=== PATIENT | male | born 1970 | race American Indian/Alaskan Native ===

== ENCOUNTER → 2016-10-27 | Outpatient (CLI) | payer OTHER ==
[~2016-10-27] MED LIST: BUPR100T11 PO; VALA500T4 PO
== END | disposition home or self-care (01) ==
LOC: RAD 10:10
PROVIDERS: ATTEND Physician Assistant
DX: I82.5Z2 Chronic embolism and thrombosis of unspecified deep veins of left distal lower extremity (principal); M79.662 Pain in left lower leg

== ENCOUNTER → 2016-11-12 | Outpatient (CLI) | payer OTHER ==
[2016-11-14 11:06] LABS: DILUTE PROTHROMBIN TIME (DPT) 37.1 sec (0.0-55.0); DILUTE RUSSELL'S VIPER VENOM 38.6 sec (0.0-47.0); LUPUS REFLEX INTERPRETATION Comment: (.); PTT-LA 32.4 sec (0.0-43.6)
== END | disposition home or self-care (01) ==
LOC: LAB 11:20
PROVIDERS: ATTEND Family Medicine
DX: I82.512 Chronic embolism and thrombosis of left femoral vein (principal); D23.9 Other benign neoplasm of skin, unspecified; R53.83 Other fatigue
CPT/HCPCS: 36415; 81241; 85300; 85303; 85306; 85613; 85670; 85705; 85732

== ENCOUNTER 2016-12-26 10:16 | Emergency (ER) | payer OTHER ==
[~2016-12-26] VITALS: Ht 188 cm; Wt 100.0 kg
[2016-12-26] MEDS: ONDANSETRON 2MG/ML, 2ML IVPush ONE ×2 (10:30→11:48)
[2016-12-26] MEDS ORDERED: SODIUM CHLORIDE 0.9% 1,000ML IVBOLUS ONE (10:30)
[2016-12-26] MEDS ORDERED: SODIUM CHLORIDE FLUSH 10ML SYR IVF ONE (10:30)
[2016-12-26] MEDS ORDERED: MORPHINE SULFATE 4 MG/ML, 1ML IVPush PRN (10:30)
[2016-12-26] MEDS ORDERED: [UNRECOGNIZED DRUG - OTHER] PO (11:35)
[2016-12-26] MEDS ORDERED: MAGN400T36 PO (11:35)
[2016-12-26] MEDS ORDERED: VITA1TAB65 PO (11:35)
[2016-12-26] MEDS ORDERED: GINK120C PO (11:35)
[2016-12-26] MEDS ORDERED: NAPR220C2 PO (11:35)
[2016-12-26] MEDS ORDERED: ASPI-515 PO (11:35)
[2016-12-26] MEDS ORDERED: LORA10TA75 PO (11:35)
[2016-12-26] MEDS ORDERED: ONDANSETRON 2MG/ML, 2ML ONE (11:46)
[2016-12-26 11:52] LABS: BLOOD UREA NITROGEN 21 mg/dL (7-18)
[2016-12-26] MEDS ORDERED: RIVAROXABAN 15 MG TABLET PO ONE (12:54)
[2016-12-26 12:56] VITALS: BP 130/83
[2016-12-26] MEDS ORDERED: MORPHINE SULFATE 4 MG/ML, 1ML ONE (13:36)
[2016-12-26] MEDS ORDERED: OMNIPAQUE 350 MG/ML, 100ML BOTTLE ONE (18:17)
[2016-12-29 09:06] LABS: DILUTE PROTHROMBIN TIME (DPT) 33.8 sec (0.0-55.0); LUPUS REFLEX INTERPRETATION Comment: (.); PTT-LA 33.1 sec (0.0-51.9)
== END 2016-12-26 14:16 | disposition home or self-care (01) ==
LOC: ED 11:55
DX: I82.432 Acute embolism and thrombosis of left popliteal vein (principal); I82.412 Acute embolism and thrombosis of left femoral vein
CPT/HCPCS: 36415; 71275; 80048; 81240; 81241; 82040; 85025; 85300; 85303; 85306; 85613; 85670; 85705; 85732; 86147; 93005; 93971; 96361; 96374; 96375; 99285; J2405; J7030; Q9967

== ENCOUNTER → 2017-02-25 | Outpatient (CLI) | payer OTHER ==
[~2017-02-25] MED LIST changes: +ASPI-515 PO; +GINK120C PO; +LORA10TA75 PO; +MAGN400T36 PO; +NAPR220C2 PO; +VITA1TAB65 PO; +[UNRECOGNIZED DRUG - OTHER] PO
[2017-02-25 08:22] LABS: HEMATOCRIT 45.5 % (39.2-51.8); WHITE BLOOD COUNT 7.8 x10^3/uL (3.4-10)
[2017-02-25 08:34] LABS: ASPARTATE AMINO TRANSFERASE 17 U/L (15-37); BLOOD UREA NITROGEN 13 mg/dL (7-18)
== END | disposition home or self-care (01) ==
LOC: LAB 08:10
PROVIDERS: ATTEND Family Medicine
DX: Z12.5 Encounter for screening for malignant neoplasm of prostate (principal); E55.9 Vitamin D deficiency, unspecified; E74.39 Other disorders of intestinal carbohydrate absorption; E78.5 Hyperlipidemia, unspecified; R53.83 Other fatigue; Z79.899 Other long term (current) drug therapy
CPT/HCPCS: 36415; 80053; 80061; 82306; 84153; 85025; G0103

== ENCOUNTER → 2017-03-08 | Outpatient (CLI) | payer OTHER ==
[2017-03-08 12:15] LABS: BLOOD UREA NITROGEN 19 mg/dL (7-18)
[2017-03-08 12:18] LABS: ASPARTATE AMINO TRANSFERASE 17 U/L (15-37); LACTATE DEHYDROGENASE 153 U/L (87-241)
[2017-03-10 13:07] LABS: BETA-2 GLYCOPROTEIN I IGA <9 (0-25)
[2017-03-10 15:03] LABS: JAK2 GENE MUTATION SEE NEOGEN REPORT
== END | disposition home or self-care (01) ==
LOC: LAB 11:35
PROVIDERS: ATTEND Internal Medicine
DX: I82.592 Chronic embolism and thrombosis of other specified deep vein of left lower extremity (principal); Z86.711 Personal history of pulmonary embolism; Z79.01 Long term (current) use of anticoagulants
CPT/HCPCS: 36415; 80053; 81270; 82248; 83615; 85306; 86146

== ENCOUNTER → 2017-12-01 | Outpatient (CLI) | payer OTHER ==
[~2017-12-01] MED LIST changes: +OMNIPAQUE 350 MG/ML, 100ML BOTTLE ONE
== END | disposition home or self-care (01) ==
LOC: RAD 19:16
PROVIDERS: ATTEND Nurse Practitioner Family
DX: I82.432 Acute embolism and thrombosis of left popliteal vein (principal); I82.412 Acute embolism and thrombosis of left femoral vein; R07.1 Chest pain on breathing
CPT/HCPCS: 71275; 93971; Q9967

== ENCOUNTER → 2017-12-23 | Outpatient (CLI) | payer OTHER ==
[~2017-12-23] MED LIST changes: -OMNIPAQUE 350 MG/ML, 100ML BOTTLE ONE
== END | disposition home or self-care (01) ==
LOC: RAD 10:07
PROVIDERS: ATTEND Orthopaedic Surgery
DX: Z51.89 Encounter for other specified aftercare (principal); M75.101 Unspecified rotator cuff tear or rupture of right shoulder, not specified as traumatic; M75.51 Bursitis of right shoulder; M19.011 Primary osteoarthritis, right shoulder

== ENCOUNTER → 2018-05-13 | Outpatient (CLI) | payer OTHER | END | disposition home or self-care (01) | LOC: RAD 11:40 | PROVIDERS: ATTEND Physician Assistant | DX: R94.5 Abnormal results of liver function studies (principal) | CPT/HCPCS: 76700 ==

== ENCOUNTER 2018-08-08 08:11 | Outpatient (CLI) | payer OTHER ==
[~2018-08-08 08:11] MED LIST changes: -RIVA20TA PO
[2018-08-08] MEDS ORDERED: RIVA20TA PO (08:37)
== END 2018-08-08 23:59 | disposition home or self-care (01) ==
LOC: STAR 08:11
PROVIDERS: ATTEND Orthopaedic Surgery
DX: Z02.9 Encounter for administrative examinations, unspecified (principal)

== ENCOUNTER → 2018-08-08 | Outpatient (CLI) | payer OTHER ==
[~2018-08-08] MED LIST changes: +RIVA20TA PO
[2018-08-08 09:18] LABS: ALBUMIN 3.7 g/dL (3.4-5.0); BILIRUBIN, DIRECT 0.2 mg/dL (0.1-0.2)
[2018-08-08 09:20] LABS: BILIRUBIN,INDIRECT 0.8 mg/dL (0.0-2.0); TOTAL PROTEIN 7.5 g/dL (6.4-8.2)
== END | disposition home or self-care (01) ==
LOC: LAB 08:54
PROVIDERS: ATTEND Physician Assistant
DX: R94.5 Abnormal results of liver function studies (principal)
CPT/HCPCS: 36415; 80076; 82977

== ENCOUNTER 2018-08-24 05:39 | Day surgery (SDC) | payer OTHER ==
[~2018-08-24] VITALS: Ht 188 cm; Wt 100.1 kg
[~2018-08-24 05:39] MED LIST changes: +RIVA20TA PO
[2018-08-24 06:03] VITALS: BP 112/89
[2018-08-24] MEDS ORDERED: ENOX100S5 SQ (06:06)
[2018-08-24] MEDS ORDERED: LACTATED RINGERS 1,000 ML IV SCH (06:09)
[2018-08-24] MEDS ORDERED: MIDAZOLAM 1 MG/ML, 2ML ONE (06:24)
[2018-08-24] MEDS ORDERED: EPINEPHRINE TOPICAL SOLN 1 MG/ML, 30ML ONE (06:24)
[2018-08-24] MEDS ORDERED: FENTANYL PF 250 MCG/5ML ONE (06:24)
[2018-08-24] MEDS ORDERED: BACITRACIN 50,000 UNIT ONE (06:25)
[2018-08-24] MEDS ORDERED: ACETAMINOPHEN 500 MG TABLET ONE (06:32)
[2018-08-24] MEDS ORDERED: GABAPENTIN 300 MG CAPSULE ONE (06:33)
[2018-08-24] MEDS ORDERED: BUPIVACAINE/PF-EPI 0.5% 1:200K ONE (06:48)
[2018-08-24] MEDS ORDERED: BUPIVACAINE/PF 0.25% ONE (06:49)
[2018-08-24] MEDS ORDERED: ACETAMINOPHEN 500 MG TABLET PO ONE (07:00)
[2018-08-24] MEDS ORDERED: GABAPENTIN 300 MG CAPSULE PO ONE (07:00)
[2018-08-24] MEDS ORDERED: ROCURONIUM 10MG/ML,5ML ONE (07:41)
[2018-08-24] MEDS ORDERED: CEFAZOLIN 1,000 MG ONE (07:41)
[2018-08-24] MEDS ORDERED: GLYCOPYRROLATE 0.2MG/1ML, 5ML ONE (07:41)
[2018-08-24] MEDS ORDERED: SUCCINYLCHOLINE 20 MG/ML, 10ML ONE (07:41)
[2018-08-24] MEDS ORDERED: NEOSTIGMINE 1 MG/ML, 10ML ONE (07:41)
[2018-08-24] MEDS ORDERED: DEXAMETHASONE 4 MG/ML, 1ML ONE (07:41)
[2018-08-24] MEDS ORDERED: ONDANSETRON 2MG/ML, 2ML ONE (07:41)
[2018-08-24] MEDS ORDERED: PROPOFOL 10 MG/ML, 20ML ONE (07:41)
[2018-08-24] MEDS ORDERED: MEPERIDINE/PF 25MG/0.5ML IVPush PRN (08:30)
[2018-08-24] MEDS ORDERED: METOPROLOL 1 MG/ML, 5ML IV PRN (08:30)
[2018-08-24] MEDS ORDERED: LABETALOL 5MG/ML, 20ML IV PRN (08:30)
[2018-08-24] MEDS ORDERED: OXYcodone 5 MG/5 ML ORAL.SOL UDC PO PRN (08:30)
[2018-08-24] MEDS ORDERED: PROCHLORPERAZINE 5 MG/ML, 2ML IV PRN (08:30)
[2018-08-24] MEDS ORDERED: hydrALAzine 20 MG/ML, 1ML IV PRN (08:30)
[2018-08-24] MEDS ORDERED: DIPHENHYDRAMINE 50 MG/ML, 1ML IVPush PRN (08:30)
[2018-08-24] MEDS ORDERED: PROMETHAZINE 25 MG/ML, 1ML IV PRN (08:30)
[2018-08-24] MEDS ORDERED: HALOPERIDOL 5 MG/ML IV PRN (08:30)
[2018-08-24] MEDS ORDERED: FENTANYL PF 100 MCG/2ML ONE (08:45)
[2018-08-24] MEDS ORDERED: OXYcodone 5 MG/5 ML ORAL.SOL UDC ONE (08:45)
[2018-08-24] MEDS ORDERED: HYDROmorphone 1 MG/ML, 1ML ONE (08:45)
[2018-08-24] MEDS: FENTANYL PF 100 MCG/2ML IV PRN ×4 (08:48→09:20)
[2018-08-24] MEDS: HYDROmorphone 2 MG/ML, 1ML IVPush PRN ×2 (08:55→09:03)
[2018-08-24] MEDS ORDERED: HYDROcodone/APAP 7.5-325MG/15ML UDC ONE (12:25)
[2018-08-24] MEDS ORDERED: HYDROcodone/APAP 7.5-325MG/15ML UDC PO PRN (12:30)
== END 2018-08-24 14:28 | disposition home or self-care (01) ==
LOC: OUT 05:39
PROVIDERS: ATTEND Orthopaedic Surgery
DX: S43.431A Superior glenoid labrum lesion of right shoulder, initial encounter (principal); M75.111 Incomplete rotator cuff tear or rupture of right shoulder, not specified as traumatic; M75.41 Impingement syndrome of right shoulder; M75.51 Bursitis of right shoulder; X58.XXXA Exposure to other specified factors, initial encounter; Y93.89 Activity, other specified; Y92.89 Other specified places as the place of occurrence of the external cause; Y99.8 Other external cause status; Z86.73 Personal history of transient ischemic attack (TIA), and cerebral infarction without residual deficits; Z87.01 Personal history of pneumonia (recurrent); Z72.89 Other problems related to lifestyle
CPT/HCPCS: 29826; 29828; C1713; J0330; J0690; J1100; J1170; J2250; J2405; J2704; J2710; J3010; J3490; J7120

== ENCOUNTER 2019-01-14 09:02 | Emergency (ER) | payer OTHER ==
[~2019-01-14] VITALS: Ht 188 cm; Wt 102.0 kg
[~2019-01-14 09:02] MED LIST changes: +ENOX100S5 SQ
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
[2019-01-14 09:29] VITALS: BP 133/95
[2019-01-14] MEDS ORDERED: DIPHENHYDRAMINE 50 MG/ML, 1ML ONE (09:30)
[2019-01-14] MEDS ORDERED: SODIUM CHLORIDE FLUSH 10ML SYR IVF ONE (09:30)
[2019-01-14] MEDS ORDERED: DIPHENHYDRAMINE 50 MG/ML, 1ML IVPush ONE (09:30)
[2019-01-14] MEDS ORDERED: METOCLOPRAMIDE 5 MG/ML, 2ML IVPush ONE (09:30)
[2019-01-14] MEDS ORDERED: METOCLOPRAMIDE 5 MG/ML, 2ML ONE (09:31)
[2019-01-14] MEDS ORDERED: BUPR300T4 PO (09:32)
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
[2019-01-14 09:53] LABS: BASOPHILS # (AUTO) 0.03 x10^3/uL (0-0.1); BASOPHILS % (AUTO) 1 % (0-1); EOSINOPHILS # (AUTO) 0.08 x10^3/uL (0-0.4); EOSINOPHILS % (AUTO) 1 % (1-7); LYMPHOCYTES # (AUTO) 1.84 x10^3/uL (1-3.4); LYMPHOCYTES % (AUTO) 27 % (22-44); MD NO; MEAN CORPUSCULAR HEMOGLOBIN 30.9 pg (27.5-34.5); MEAN CORPUSCULAR HGB CONC 33.4 g/dL (33.2-36.2); MEAN CORPUSCULAR VOLUME 92.5 fL (81-97); MEAN PLATELET VOLUME 7.3 fL (7.4-10.4); MONOCYTES # (AUTO) 0.47 x10^3/uL (0.2-0.8); MONOCYTES % (AUTO) 7 % (2-9); NEUTROPHILS # (AUTO) 4.31 x10^3/uL (1.8-6.8); NEUTROPHILS % (AUTO) 64 % (42-75); PLATELET COUNT 390 x10^3/uL (130-400); RED BLOOD COUNT 5.07 x10^6/uL (4.38-5.82); RED CELL DISTRIBUTION WIDTH 14.4 % (9.4-14.8)
[2019-01-14 10:09] LABS: ALBUMIN 3.6 g/dL (3.4-5.0); ANION GAP 9 mmol/L (5-15); CALCIUM 8.5 mg/dL (8.5-10.1); CHLORIDE 110 mmol/L (98-107)
[2019-01-14 10:26] LABS: CREATININE 1.06 mg/dL (0.7-1.3)
--- NOTE | 2019-01-14 10:41 | NUR ---
PT STATES HEADACHE HAS DECREASED. ROOM DARK. PT RESTING COMFORTABLE
--- NOTE | 2019-01-14 11:03 | NUR ---
Patient/Caregiver given discharge instructions and they have confirmed that they understand the instructions. Patient ambulatory with steady gait.
== END 2019-01-14 11:20 | disposition home or self-care (01) ==
LOC: ED 10:18
DX: G44.52 New daily persistent headache (NDPH) (principal)
CPT/HCPCS: 36415; 70450; 80048; 82040; 85025; 93005; 96374; 96375; 99284; J1200; J2765

== ENCOUNTER → 2020-05-30 | Outpatient (CLI) | payer OTHER ==
[~2020-05-30] MED LIST changes: +BUPR300T94 PO; +OMNIPAQUE 350 MG/ML, 150 ML BOTTLE ONE
== END | disposition home or self-care (01) ==
LOC: RAD 11:18
PROVIDERS: ATTEND Surgery
DX: I82.422 Acute embolism and thrombosis of left iliac vein (principal); M51.34 Other intervertebral disc degeneration, thoracic region; I83.90 Asymptomatic varicose veins of unspecified lower extremity; G96.191 Perineural cyst; M51.24 Other intervertebral disc displacement, thoracic region
CPT/HCPCS: 72146; 74177; Q9967

== ENCOUNTER 2021-02-23 12:53 | Emergency (ER) | payer OTHER ==
[~2021-02-23] VITALS: Ht 188 cm; Wt 103.8 kg
[~2021-02-23 12:53] MED LIST changes: -ASPI-515 PO; +ASPI-963 PO; -OMNIPAQUE 350 MG/ML, 150 ML BOTTLE ONE
[2021-02-23] MEDS ORDERED: SODIUM CHLORIDE FLUSH 10ML SYR IVF ONE (13:30)
[2021-02-23 13:44] LABS: BASOPHILS % (AUTO) 1 % (0-1); EOSINOPHILS % (AUTO) 1 % (1-7); LYMPHOCYTES % (AUTO) 31 % (22-44); MEAN CORPUSCULAR HEMOGLOBIN 32.8 pg (27.5-34.5); MEAN CORPUSCULAR HGB CONC 34.5 g/dL (33.2-36.2); MEAN PLATELET VOLUME 7.3 fL (7.4-10.4); MONOCYTES % (AUTO) 7 % (2-9); NEUTROPHILS % (AUTO) 61 % (42-75); PLATELET COUNT 372 x10^3/uL (130-400); RED BLOOD COUNT 4.83 x10^6/uL (4.38-5.82); RED CELL DISTRIBUTION WIDTH 13.6 % (9.4-14.8)
[2021-02-23 13:52] LABS: ALANINE AMINOTRANSFERASE 55 U/L (12-78); ALBUMIN 3.6 g/dL (3.4-5.0); ANION GAP 4 mmol/L (5-15); CALCIUM 8.7 mg/dL (8.5-10.1); CHLORIDE 105 mmol/L (98-107); CREATININE 1.17 mg/dL (0.7-1.3)
[2021-02-23 13:57] LABS: ALKALINE PHOSPHATASE 53 U/L (45-117); BILIRUBIN,TOTAL 1.1 mg/dL (0.2-1.0); TOTAL PROTEIN 7.7 g/dL (6.4-8.2); TROPONIN I < 0.015 ng/mL (0.000-0.045)
[2021-02-23] MEDS ORDERED: FLUO20CA19 PO (14:24)
[2021-02-23 15:59] VITALS: BP 141/93
[2021-02-23 20:23] LABS: CHOL/HDL RATIO 3.9; LDL/HDL RATIO 2.5 (0.5-3.0)
[2021-02-23 20:37] LABS: FREE T4 (FREE THYROXINE) 0.96 ng/dL (0.76-1.46)
== END 2021-02-23 16:00 | disposition home or self-care (01) ==
LOC: ED 13:00
DX: R07.89 Other chest pain (principal); I10 Essential (primary) hypertension; F17.200 Nicotine dependence, unspecified, uncomplicated
CPT/HCPCS: 36415; 71046; 80053; 80061; 82306; 84153; 84154; 84439; 84443; 84484; 85025; 93005; 99285